=== PATIENT | female | born 1945 | race Two or more races ===

== ENCOUNTER 2017-06-26 09:15 | Day surgery (SDC) | payer OTHER ==
[~2017-06-26] VITALS: Ht 160 cm; Wt 78.0 kg
--- NOTE | ~2017-06-26 | OR ---
PATIENT'S NAME: RAINA VILLALOBOS [facility] AGE: 71 Y [address] ROOM: [place] [address] LOCATION: [facility] [place] ADMIT DATE: 06/26/2017 OR/Procedure Report DISCHARGE DATE: FAMILY PHYSICIAN: Lory Schaefer APRN ATTENDING PHYSICIAN: Javier Vale SURGEON: Javier Vale MD CROOK OPERATOR: Patricia Suarez PA-C. DATE OF PROCEDURE: 06/26/2017 PREOPERATIVE DIAGNOSIS: Cholelithiasis. POSTOPERATIVE DIAGNOSIS: Evidence of previous cholecystectomy. PROCEDURE PERFORMED: Exploratory laparoscopy. ANESTHESIA: General. ESTIMATED BLOOD LOSS: 30 mL. SPECIMEN: None. REASON FOR PROCEDURE: The patient is a 71-year-old female, who was undergoing workup for some abdominal pain. She had denied any previous cholecystectomy and had an ultrasound done that showed a contracted gallbladder with stones and some possible gallbladder wall thickening. Common duct was also on the generous side. Her liver function tests were all normal. After discussing the ultrasound findings with her through her son and the use of an spanish interpreter/translator, she elected to proceed with laparoscopic cholecystectomy. FINDINGS: The patient had considerable intraabdominal adhesions from previous surgeries which made exposure difficult. We were able to expose the gallbladder fossa and explore this area. There was no evidence of gallbladder. We did have some bleeding from the liver bed trying to expose this area completely but nothing heavy. PROCEDURE IN DETAIL: The patient was taken to the operating suite and placed in a supine position. After general endotracheal anesthesia was obtained, the abdomen was prepped with ChloraPrep and sterilely draped. Marcaine was infiltrated into the incision sites. A small infraumbilical incision was made. The fascia was elevated and a Veress needle was used to obtain a pneumoperitoneum. An 11 mm bladeless trocar was then passed across the abdominal wall. This was done with the camera through the trocar to visualize as the trocar was advanced. We then placed 3 subcostal 5 mm trocars. We initially had to spend some time taking down adhesions from the midline to expose the right upper quadrant. We then found omental adhesions up to the PATIENT'S NAME: RAIAN VILLALOBOS [facility] AGE: 71 Y [address] ROOM: [place] [address] LOCATION: [facility] [place] ADMIT DATE: 06/26/2017 OR/Procedure Report DISCHARGE DATE: FAMILY PHYSICIAN: Lory Schaefer APRN ATTENDING PHYSICIAN: Javier Vale edge of the liver. We carefully took these down with cautery. The omentum was somewhat caked and adherent into the area of the gallbladder fossa. We made sure the entire liver was well exposed to confirm our location anatomy. I continued the dissection inferiorly and could find no evidence of gallbladder. We had some thick fatty adhesions into the gallbladder fossa and we dissected through these to make sure there was not a contracted gallbladder within this. We did enter the liver bed and had a little minor bleeding. This was controlled with Surgicel. We continued the dissection inferiorly but could find no evidence of gallbladder and felt like this scarring was from previous cholecystectomy that for some reason, the patient was unaware of. We re-explored the right upper quadrant. There was no evidence of bleeding or bile leak. No other obvious injuries were identified. The trocars were all withdrawn. The pneumoperitoneum was evacuated. The fascia at the umbilicus was closed with a [id number] Vicryl suture. The other trocars were withdrawn. We did end up placing an extra 5 mm trocar, used a fan to provide some extra traction. All skin incisions were closed with subcuticular Monocryl. Benzoin, Steri-Strips, and gauze dressings were applied. POSTPROCEDURE PLAN: The patient will be sent to recovery and then to the floor. I will plan on reviewing her ultrasound with a second radiologist and discussing this with the family explaining the confusion. MD JOLIE HERMOSILLO/modl /[id number] d: 06/26/171742 t: 07/03/171938, OPERATIVE SUMMARY
[~2017-06-26 09:15] MED LIST: ASPIR 8181 MG PO; COLACE100 MG PO; GLUCOPHAGE850 M1 PO; LEVOTHROID (SY88 MCG PO; LIPITOR20 M1 PO; LISINOPRIL2.5 MG PO; NORCO 5-325 MG1 TAB PO; TYLENOL325 MG PO; ZANTAC150 MG PO; ZOLOFT100 MG PO
--- NOTE | 2017-06-26 17:47 | NUR ---
Significant Event: Pt here from PACU at 1545. Pt has 5 lap sites, right abdominal drsg has bloody drainage, the rest are dry. Pt had stridor in PACU and was given albuterol and racemic epi x 2. No stridor noted, clear lung sounds and O2 sats of 97-98% on room air. Pt is Colombian speaking.
--- NOTE | 2017-06-27 04:52 | NUR ---
Significant Event: AAOX3. REG DIET. PIV TO LFA IVF INFUSING. PAPUA [place] SPEAKING ONLY. SON IN ROOM FOR ROUTINE INTERPRETATION. VSS ON RA. 1 LG INCONTINENT VOID. 5 LAP SITES TO ABD. DRESSING CDI WITH EXCEPTION TO ONE ON RIGHT SIDE. 2 NORCO ADMINISTERED X2, LAST AT 0254. PT C/O NAUSEA (NO EMESIS), ZOFRAN ADMINISTERED AT 2156. SPD'S TO BLE. COOPERATIVE WITH CARES. Follow up:
[2017-06-27] MEDS ORDERED: NORCO 5-325 TA1 EACH PO (12:04)
--- NOTE | 2017-06-27 13:00 | NUR ---
DISCHARGE: Pt. and son were explained discharge instructions in [place]an, using the MARTII. José pina teaching and medication education on [place] given. IV removed by primary nurse. Verbalized understanding of teaching, no questions or concerns. Left with all belongings and prescriptions. Taken to front door by aide and driven home by son.
--- NOTE | 2017-06-27 15:20 | NUR ---
Significant event: Up in room and moreno ambulating with assist and gait belt and walker. [place] once for pain, had zofran for nausea and reports she had emesis and then felt better. Son at bedside.
== END 2017-06-27 13:00 | disposition disaster alternative care site (69) ==
LOC: GSDC 09:15 → GMSU 09:15 → GSDC 11:00 → GMSU 16:00 → GSDC 06-27 13:00
PROC: 0DNT4ZZ (ICD-10-PCS; principal; 2017-06-26)
DX: K66.0 Peritoneal adhesions (postprocedural) (postinfection) (principal); I10 Essential (primary) hypertension; E03.9 Hypothyroidism, unspecified; E11.9 Type 2 diabetes mellitus without complications; Z90.49 Acquired absence of other specified parts of digestive tract; Z90.710 Acquired absence of both cervix and uterus; Z79.82 Long term (current) use of aspirin; Z79.84 Long term (current) use of oral hypoglycemic drugs; Z79.899 Other long term (current) drug therapy; Z98.890 Other specified postprocedural states; Z88.1 Allergy status to other antibiotic agents
CPT/HCPCS: J0694; J2001; J2405; J7030

== ENCOUNTER 2017-07-06 11:30 | Observation (INO) | payer OTHER ==
[~2017-07-06] VITALS: Ht 162.6 cm; Wt 78.9 kg
--- NOTE | ~2017-07-06 | DS ---
PATIENT'S NAME: RAINA VILLALOBOS [facility] AGE: 71 Y [address] ROOM: [address] [address] [place] [facility] [place] [facility] [place] ADMIT DATE: 07/06/2017 Discharge Summary DISCHARGE DATE: 07/09/2017 FAMILY PHYSICIAN: Lory Schaefer APRN ATTENDING PHYSICIAN: Javier Vale DIAGNOSES: Abdominal pain with nausea and vomiting, with findings of moderate- to-severe bile-induced gastritis and mild esophagitis. SUMMARY: Raina Bautista is a 71-year-old Lithuanian-speaking female, who had recently underwent an exploratory laparoscopy. An ultrasound had shown evidence for cholelithiasis. The patient had a prior cholecystectomy. The patient had been discharged home from surgery, and was seen in followup by Dr. Vale on July 06. The patient was continuing to have abdominal pain, nausea, and vomiting, and stated that she had not been able to keep anything down. She was admitted to [facility] under the care of Dr. Vale, and a CT scan was obtained, which showed postoperative changes with no acute findings. The patient was allowed clear liquids and activity as tolerated. Hospitalist was consulted for medical management. Gastroenterology was subsequently consulted, and an EGD was performed on July 08 that did show [id number] bile-induced gastritis and mild esophagitis. Gastroenterology recommended proton pump inhibitor, Carafate, and prokinetics. Biopsy of the stomach showed reactive gastropathy. Following the EGD, diet was advanced as tolerated. On July 09, the patient was noted to have no abdominal pain, no nausea, or vomiting. Arrangements were made for the patient to discharge home. DISCHARGE INSTRUCTIONS: Included continuing with a low-fat diet. No restrictions on activity. She will follow up with Gastroenterology in 1 week. She was instructed to continue with the proton pump inhibitor, Reglan, and Carafate as prescribed until seen back in followup. DISCHARGE MEDICATIONS: Include 1. Aspirin 81 mg p.o. daily. 2. Lipitor 20 mg p.o. daily. 3. Levothroid 88 mcg p.o. daily. 4. Lisinopril 2.5 mg p.o. daily. 5. Zoloft 100 mg p.o. at bedtime. 6. Carafate suspension 1000 mg p.o. before meals and at bedtime, dispensing fourteen days' worth. 7. Tylenol 325 mg one to two every 4 hours p.r.n. pain. 8. Glucophage 850 mg p.o. daily. 9. Protonix 40 mg p.o. daily x14 days. 10. Reglan 10 mg p.o. q.a.c. and at bedtime x14 days. PATIENT'S NAME: RAINA VILLALOBOS [facility] AGE: 71 Y [address] ROOM: [place] [address] LOCATION: [facility] [place] [facility] [place] ADMIT DATE: 07/06/2017 Discharge Summary DISCHARGE DATE: 07/09/2017 FAMILY PHYSICIAN: Lory Schaefer APRN ATTENDING PHYSICIAN: Javier Vale For specifics on day-to-day care, please refer to the hospital chart. EVE PARHAM PA-C FOR MD KRISTOPHER HERMOSILLO/modl /[id number] d: 07/28/17 0533 t: 07/28/17 1126, DISCHARGE SUMMARY
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
[~2017-07-06 11:30] MED LIST changes: +NORCO 5-325 TA1 EACH PO
--- NOTE | 2017-07-06 16:28 | NUR ---
Patient is a 72 year old female who was admitted with dehydration and nausea and vomiting. Patient was admitted a few weeks ago with the same thing and a lapratomy was done to remove the gallbladder, but no gallbladder was found. Has the 5 abominal lap sites with steri-strips in place. C/D/I. Only has pain when touching, denies nausea at this time. Macedonian speaking only. Has a history of CAD, HTN, TIA, tachycardia, heartburn, diarrhea, constipation, CKD, diabetes type 2, thyroid disease. Allergies noted. Fall risk. Cooperative with admission. Iveth Power translated the admission. Language line in the room for deirdreur translations.
--- NOTE | 2017-07-06 16:52 | NUR ---
Significant Event:Is A/O.Is irish speaking only.IV in Lt.arm.Is having CT abd yet today.Getting bicarb IV.Drank barium at 1600 & 1630.Old abd stab sites look gd./healed.Pain when palpate abd.especially on Lt.side.Has had some diarrhea,N/V at home.Had lap surgery a few weeks ago.Is up with walker & standby assist.Did have very short episode of sharp Lt.upper chest pain lasting maybe 30-40 seconds then was gone.Vital signs were good.No other c/o.No SOB or lightheadedness.After CT scan ,need to run bicarb at 76ml/hr for 6hrs then back to NS at 115ml/hr. Follow up:
[2017-07-07 00:44] LABS: CPK 82 IU/L (21-215)
--- NOTE | 2017-07-07 04:07 | NUR ---
Patient is thai speaking only, language line is in the room. SBA with cane and gait belt. IV to L) forearm infusing NS at 115ml/hr. Has not had any nausea, vomiting or diarrhea this shift, no complaints of pain. Has lap sites with steri-strips from previous surgery. Dr. Vale said the CT was relatively normal. Possible discharge today.
[2017-07-07 05:49] LABS: BASOPHIL # 0.1 K/uL (0.0-0.2); BASOPHIL % 0.6 %; EOSINOPHIL # 0.4 K/uL (0.0-0.5); EOSINOPHIL % 3.4 %; HEMATOCRIT 32.3 % (33.0-46.0); HEMOGLOBIN 10.5 g/dL (10.0-15.0); IMMATURE GRANULOCYTE # 0.1 K/uL (0.0-0.3); IMMATURE GRANULOCYTE % 0.4 %; LYMPHOCYTE # 2.3 K/uL (0.8-4.0); LYMPHOCYTE % 18.8 %; MCH 29.3 pg (27.0-34.0); MCHC 32.5 gm/dL (32.0-36.5); MCV 90.2 fl (83.0-98.0); MONOCYTE # 0.7 K/uL (0.0-1.0); MONOCYTE % 5.6 %; MPV 9.1 fl (9.4-12.4); NEUTROPHIL # (ANC) 8.6 K/uL (1.8-7.8); NEUTROPHIL % 71.2 %; NRBC % 0 /100WBC (0-0.00); PLATELET COUNT 369 K/uL (150-450); RBC 3.58 M/uL (3.50-5.50); RDW-CV 14.7 % (11.9-14.6)
[2017-07-07 06:02] LABS: ALBUMIN 3.3 gm/dL (3.5-5.0); ANION GAP 11.8 (10.0-19.0); CALCIUM 8.3 mg/dL (8.5-10.5); CREATININE 1.3 mg/dL (0.5-1.1); POTASSIUM 3.8 mMol/L (3.7-5.1); TOTAL BILIRUBIN 0.5 mg/dL (0.0-1.5); TOTAL PROTEIN 7.3 g/dL (6.0-8.4)
[2017-07-07 06:04] LABS: CPK 85 IU/L (21-215)
--- NOTE | 2017-07-07 12:20 | NUR ---
Introduced self/role thru the [employer], to patient and her son. They denied any barriers to going home or at home. She was getting around independently prior and denied need for DME. Added my name to her marker board, will continue to follow. Patient/son filled out financial assistance paperwork and turned it in about 3 days ago.
--- NOTE | 2017-07-07 13:35 | NUR ---
PT SCREENED D/T (+) MST. WT LOSS NOT SIGNIFICANT FROM PREVIOUS OUTPATIENT ADMISSION. BMI IN OVERWEIGHT RANGE. BASED ON CURRENT DATA, NO NUTRITION DX IDENTIFIED. WILL ASSIST NEEDED.
--- NOTE | 2017-07-07 14:58 | NUR ---
Significant Event: Patient is alert and oriented x3. Cook Islander speaking only. Language line at the bedside as well as the counter server used. One son does speak some gambian. Was nauseated this morning and had one small emesis. Zofran given x2, last around 1120. Has denied nausea this afternoon. Abdominal pain only upon palpation. Patient complaints of a headache this afternoon, called for an order for tylenol and given 1000mg around 1430. GI consulted today. EGD in the AM. Permits need signed yet. Up with SBA and her cane. UA ordered and the next time she voids we will attempt to collect, items in the room. Has only taken in sips of clears, barely anything. L)FA IV, fluids infusing. Accuchecks AC/HS. Old lap sites x5 are C/D/I. Showered this morning. Cooperative with cares.
--- NOTE | 2017-07-08 01:55 | NUR ---
Patient is alert and oriented, hypertensive. Mongolian speaking only. SBA with cane and gait belt. Will try to get out of bed by herself. UA collected. Has not had any nausea this shift, only a headache with tylenol given. NPO since midnight for EGD, consents are signed.
[2017-07-08 01:59] LABS: BILIRUBIN URINE NEGATIVE (NEGATIVE); BLOOD URINE NEGATIVE /UL (NEGATIVE); COLOR URINE YELLOW (YELLOW); GLUCOSE URINE NEGATIVE (NEGATIVE); KETONE URINE NEGATIVE (NEGATIVE); LEUKOCYTES URINE 25 /UL (NEGATIVE); NITRITE URINE NEGATIVE (NEGATIVE); PROTEIN URINE NEGATIVE (NEGATIVE); TURBIDITY URINE CLEAR (CLEAR); UROBILINOGEN URINE NORMAL (NORMAL)
[2017-07-08 02:09] LABS: BACTERIA URINE RARE (NEGATIVE); RBC URINE NEGATIVE #/HPF (NEGATIVE); WBC URINE 0-2 #/HPF (NEGATIVE)
[2017-07-08 04:57] LABS: BASOPHIL # 0.1 K/uL (0.0-0.2); BASOPHIL % 0.7 %; EOSINOPHIL # 0.3 K/uL (0.0-0.5); EOSINOPHIL % 3.6 %; HEMATOCRIT 29.1 % (33.0-46.0); HEMOGLOBIN 9.4 g/dL (10.0-15.0); IMMATURE GRANULOCYTE % 0.5 %; LYMPHOCYTE # 1.4 K/uL (0.8-4.0); LYMPHOCYTE % 16.7 %; MCH 29.5 pg (27.0-34.0); MCHC 32.3 gm/dL (32.0-36.5); MCV 91.2 fl (83.0-98.0); MONOCYTE # 0.5 K/uL (0.0-1.0); MONOCYTE % 6.4 %; MPV 9.2 fl (9.4-12.4); NEUTROPHIL # (ANC) 6.1 K/uL (1.8-7.8); NEUTROPHIL % 72.1 %; NRBC % 0 /100WBC (0-0.00); PLATELET COUNT 311 K/uL (150-450); RBC 3.19 M/uL (3.50-5.50); RDW-CV 14.5 % (11.9-14.6); WBC 8.4 K/uL (4.0-11.0)
[2017-07-08 05:13] LABS: ANION GAP 12.8 (10.0-19.0); CALCIUM 7.8 mg/dL (8.5-10.5); CREATININE 1.2 mg/dL (0.5-1.1); POTASSIUM 3.8 mMol/L (3.7-5.1)
--- NOTE | 2017-07-08 15:49 | NUR ---
Significant Event: PT AO. ENGLISH SPEAKING ONLY. VSS ON RA, AFEBRILE. IVF RUNNING NS @ 115ML/HR TO L FA. HAD EGD THIS AM, GASTRIC BIOPSIES SENT TO CHECK FOR H PYLORI. TOLERATED CLEAR LIQUID DIET, ADVANCED TO FULL LIQUIDS FOR DINNER AND LOW FAT FOR TOMORROW AM. AC HS ACCUCHECKS, NO COVERAGE NEEDED. AMBULATES WITH SBA, CANE. DENIES PAIN, DENIES NAUSEA. PRUNE JUICE GAVE FOR CONSTIPATION, PT HAD SOME RESULTS (DID NOT LET NURSE SEE, BUT NEEDED A NEW GOWN AND PAD IN THE BED). REFUSED SHOWER THIS AM DUE TO EGD. Follow up: ADVANCE DIET, CONTINUE TO MONITOR, POSSIBLE DC TOMORROW?
--- NOTE | 2017-07-09 04:07 | NUR ---
Significant Event: Patient alert and oriented X4. Mohawk speaking only, language line at bedside. Vitals stable and on room air. 5 lap sites from previous surgery a few weeks ago. On 115ml of NS to L) forearm. Scheduled IV reglan. EGD yesterday. Full liquid for dinner. SBA with cane. Up to bathroom several times. DEnies pain and nausea. ACHS accuchecks. Possible DC today. Follow up: Monitor stomach pain
[2017-07-09 04:42] LABS: ALBUMIN 2.6 gm/dL (3.5-5.0); ANION GAP 12.1 (10.0-19.0); CALCIUM 7.4 mg/dL (8.5-10.5); CREATININE 1.1 mg/dL (0.5-1.1); POTASSIUM 4.1 mMol/L (3.7-5.1)
[2017-07-09] MEDS ORDERED: CARAFATE1 GM/10 ML PO (16:17)
[2017-07-09] MEDS ORDERED: PROTONIX40 MG PO (16:18)
[2017-07-09] MEDS ORDERED: REGLAN10 MG PO (16:20)
--- NOTE | 2017-07-09 16:55 | NUR ---
DISCHARGE INSTRUCTIONS REVIEWED WITH PT AND SON. PT REFUSED USE OF LANGUAGE LINE. SON SPEAKS KINYARWANDA AND WILL BE HELPING WITH HOME CARES. INSTRUCTIONS INCLUDED NEW MEDICATIONS, CARAFATE AND REGLAN PRIOR TO MEALS. SON VERBALIZED UNDERSTANDING. INSTRUCTED SON TO CALL TOMORROW TO MAKE F/U APPOINTEMENTS FOR [address] MOORE. SON VERBALIZED UNDERSTANDING. PT TAKEN TO FRONT LOBBY BY MICHELA IN WHEELCHAIR WITH BELONGINGS AT 1645.
== END 2017-07-09 16:45 | disposition disaster alternative care site (69) ==
LOC: EDSTATUS 11:30 → GMSU 11:34
PROVIDERS: Internal Medicine; ADMIT Surgery
PROC: 0DB68ZX Excision of Stomach, Via Natural or Artificial Opening Endoscopic, Diagnostic (ICD-10-PCS; principal; 2017-07-08)
DX: K20.9 Esophagitis, unspecified (principal); K44.9 Diaphragmatic hernia without obstruction or gangrene; K31.9 Disease of stomach and duodenum, unspecified; I10 Essential (primary) hypertension; E03.9 Hypothyroidism, unspecified; E78.00 Pure hypercholesterolemia, unspecified; E11.9 Type 2 diabetes mellitus without complications; F32.9 Major depressive disorder, single episode, unspecified; Z88.1 Allergy status to other antibiotic agents; Z86.73 Personal history of transient ischemic attack (TIA), and cerebral infarction without residual deficits; Z90.49 Acquired absence of other specified parts of digestive tract; Z90.710 Acquired absence of both cervix and uterus; Z98.51 Tubal ligation status; Z98.890 Other specified postprocedural states; Z79.84 Long term (current) use of oral hypoglycemic drugs; Z79.82 Long term (current) use of aspirin; Z79.899 Other long term (current) drug therapy
CPT/HCPCS: C9113; G0378; G0379; J2405; J2765; J7030; J7060; Q9967

== ENCOUNTER 2017-08-06 08:27 | Observation (INO) | payer SELFPAY ==
[~2017-08-06] VITALS: Ht 152.4 cm; Wt 74.6 kg
--- NOTE | ~2017-08-06 | DS ---
PATIENT'S NAME: RAINA VILLALOBOS [facility] AGE: 72 Y [address] ROOM: [address] [place], [place] [address] [place] [facility] [place]: 08/06/2017 Discharge Summary DISCHARGE DATE: 08/07/2017 FAMILY PHYSICIAN: Physician, Unknown ATTENDING PHYSICIAN: Holly Crooks FINAL DIAGNOSES: 1. Diverticulitis. 2. Acute kidney injury versus chronic kidney disease. 3. Diabetes mellitus type 2. 4. Hypothyroidism. 5. Esophagitis and gastritis. 6. Dyslipidemia. 7. Obesity. 8. Major depressive disorder. HOSPITAL COURSE: Please see details of admission H and P by Dr. Crooks. Briefly, the patient was admitted to observation with CT scan findings of sigmoid diverticulitis. She was started on Zosyn secondary to her allergy to Cipro on azithromycin. Her home medications were continued. Blood sugars were covered with sliding scale insulin during her stay. Heparin was utilized for DVT prophylaxis. The patient was feeling much better. On hospital day #2, she had three semi-soft stools without any blood. The patient's diet was advanced early in the morning and by the afternoon, she felt like she could safely be discharged home. She did start Flagyl prior to discharging and probiotics were utilized for C. diff prophylaxis. The patient was continued on her PPI as she recently had an EGD on 07/08/[address] Isaac showing gastritis and esophagitis. Biopsy positive for reactive gastropathy. The patient was seen and evaluated later in the afternoon and felt safe for discharge. The patient was agreeable with this disposition. DIAGNOSTICS: KUB of the abdomen shows no free air, nonspecific bowel pattern, no signs of obstruction. CT scan of the abdomen and pelvis shows segmental wall thickening and luminal narrowing and irregularity of the sigmoid colon, consistent with diverticulitis. Multiple colon diverticula predominant in the descending and sigmoid portions of the colon, past gallbladder resection, and vascular calcification. Blood sugars ranged from 126 to 225. Lactate on admission was 1.6, it did trend up to 1.9 and back down to 1.6. Chemistries showed sodium 137, potassium 4.8, chloride 108, bicarb 22, glucose 218, BUN 17, creatinine 1.3, mag 1.8 on the date of discharge. Amylase and lipase were within normal limits. Hemoglobin A1c was 6.4. CRP was 9.13. TSH was 0.67. Hemograms remained stable throughout her stay. Urinalysis was PATIENT'S NAME: RAINA VILLALOBOS [facility] AGE: 72 Y [address] ROOM: [address] [place], [place] [address] [place] [facility] [place]: 08/06/2017 Discharge Summary DISCHARGE DATE: 08/07/2017 FAMILY PHYSICIAN: Physician, Unknown ATTENDING PHYSICIAN: Holly Crooks within normal limits. DISCHARGE INSTRUCTIONS: The patient is discharged home. Diet and activity: As tolerated. She will follow up with Lory Schaefer APRN, in 1 week with [facility]. DISCHARGE MEDICATIONS: 1. Aspirin 81 mg daily. 2. Lipitor 20 mg daily. 3. Levothyroxine 88 mcg daily. 4. Flagyl 500 mg three times daily for 7 days. 5. Protonix 40 mg daily. 6. Florastor 250 mg twice daily for 30 days. 7. Zoloft 100 mg daily. 8. Tylenol 325 to 650 mg every 4 hours as needed. 9. Metformin 850 mg daily. 10. Zantac 150 mg daily. 11. Lisinopril 2.5 mg daily. 12. Reglan 10 mg before meals and at bedtime. 13. Colace 100 mg twice daily. 14. MiraLAX 17 g twice daily. 15. Simethicone 80 mg at bedtime. 16. Augmentin 875/125 one p.o. twice daily for 7 days. We do appreciate participating in this patient's care. Thank you very much for the ability to serve her while hospitalized at [facility]. LEVI MONTOYA FOR AVNI SHARMA MD NAKUL/modl /[id number] d: 08/08/17 0250 t: 08/08/17 1459, DISCHARGE SUMMARY
--- NOTE | ~2017-08-06 | ER ---
PATIENT'S NAME: JT CARVALHO [facility] AGE: 72 Y [address] ROOM: [place] [address] [place] [facility] [place]: 08/06/2017 ER/Outpatient Report DISCHARGE DATE: FAMILY PHYSICIAN: PHYSICIAN, UNKNOWN ATTENDING PHYSICIAN: ROBERTO KNOX Admission date and time documented in medical record. I saw the patient at 0840 hours. CHIEF COMPLAINT: Generalized abdominal pain for last three days. Pain is gradually worsened over this period of time. She had some nausea with one episode of vomiting on this past Monday. She has had two diarrhea stools over the past 24 hours. No blood in her vomitus or stool. She has had some intermittent fever with chills. She has had some dysuria and urinary frequency. Last diarrhea stool was 0200 hours this morning. She is afebrile on arrival here to the emergency room with a temperature 98.8 tympanic. She is brought in by her son who is translating for her. Again, the pain is generalized, radiates around to her back. No chest pain, shortness of breath. No fall or trauma. No headache, eyes, ears, nose, throat, neck, or spine pain. No lightheadedness, dizziness, syncope, or near syncope. No recent cough. No joint or muscle swelling, redness, or pain. No skin eruptions or rash. Does have a history of non- insulin-dependent diabetes mellitus type 2 and hypothyroidism. Has had a TIA in the past. Does have a history of depression. HOME MEDICATIONS: See attached medication list. ALLERGIES: AZITHROMYCIN, CIPRO. SOCIAL HISTORY: Nonsmoker, nondrinker. SIGNIFICANT PAST MEDICAL HISTORY: Atherosclerotic ischemic heart disease, coronary artery disease, hypertension, cardiomyopathy, jvj-vniztdq-lgbauefwk diabetes mellitus type 2, hypothyroidism, chronic kidney disease stage 3, exogenous obesity, degenerative disk disease, right wrist fracture, transient ischemic attack, depression, pancreatitis. OPERATIONS: Thyroid surgery, , tubal ligation, appendectomy, cholecystectomy, hysterectomy, cardiac catheterization, open reduction and internal fixation of right wrist fracture, ERCP. PATIENT'S NAME: JT CARVALHO [facility] AGE: 72 Y [address] ROOM: [place] [address] [place] [facility] [place]: 08/06/2017 ER/Outpatient Report DISCHARGE DATE: FAMILY PHYSICIAN: PHYSICIAN, UNKNOWN ATTENDING PHYSICIAN: ROBERTO KNOX REVIEW OF SYSTEMS: All systems reviewed by me are negative with exception of those discussed in the history of the present illness. PHYSICAL EXAMINATION: VITAL SIGNS: Temperature 98.8 tympanic, pulse 93 regular, respirations 18, blood pressure 130/67, O2 saturation on room air is 95%. HEAD: Normocephalic. EYES, EARS, NOSE, THROAT: Clear. Mucous membranes moist. NECK: No nuchal rigidity. No thyromegaly or cervical adenopathy. No tenderness. SPINE: Negative. LUNGS: Clear. Good air flow. No rales, rhonchi, or wheezes. HEART: Regular. Pulses are palpable. No chest wall or ribcage pain to palpation. ABDOMEN: It is soft, nonrigid, nondistended, tender diffusely. Decreased bowel tones. No organomegaly or abnormal mass palpable. No CVA tenderness. EXTREMITIES: Without peripheral edema, cyanosis, or deformity. Neurovascularly intact. SKIN: Clear. No skin eruptions or rash. LABORATORY DATA: White count was elevated at 14,700, 79 segs, 12 lymphs, 8 monos, 1 eo. Hemoglobin was 12.2 with hematocrit 37.4, platelet count 322,000. Pro-time is 10 with an INR 0.95. CMS was normal except for an elevated glucose 146, elevated creatinine 1.4, low GFR 38. Amylase and lipase were normal. CRP was elevated 9.13. TSH was normal. Urine showed rare whites, negative reds, rare epithelial cells, negative bacteria per high-powered field on a quick cath specimen. Procalcitonin was 0.07, lactate was 1.6. Three-way abdominal film showed no perforation, obstruction, or acute lung infiltrate. There was a questionable air-fluid level. We will review x-ray with the radiologist. I went ahead and did a CT scan of the abdomen and pelvis without contrast due to her chronic kidney disease and low GFR. CT scan was reviewed by Radiology. Radiologist said that she had a picture of a sigmoid diverticulitis. Inflammatory changes in that area. No other abnormalities. See radiology's dictated transcribed report. EMERGENCY DEPARTMENT COURSE: I did start the patient on IV normal saline, fluids. Did give her morphine IV for pain. Zofran IV for nausea, vomiting. IMPRESSION: 1. Sigmoid diverticulitis. It is in a segmental distribution with inflammatory changes with thickened bowel, sigmoid colon, bowel wall. PATIENT'S NAME: RAINA VILLALOBOS [facility] AGE: 72 Y [address] ROOM: [address] [address] [place] [facility] [place]: 08/06/2017 ER/Outpatient Report DISCHARGE DATE: FAMILY PHYSICIAN: PHYSICIAN, UNKNOWN ATTENDING PHYSICIAN: ROBERTO KNOX The patient has accompanied intermittent fever with chills, generalized abdominal pain, nausea, vomiting, diarrhea, leukocytosis, elevated CRP, and positive findings on CT scan of the abdomen and pelvis. 2. Bzn-edepuho-sghntrfug diabetes mellitus type 2. 3. Hypothyroidism. 4. Chronic kidney disease, stage 3. 5. Hypertension. 6. Atherosclerotic ischemic heart disease with coronary artery disease. PLAN: Discussed this patient with Dr. Knox, hospitalist. Dr. Knox did come to the emergency room to evaluate the patient and admit the patient the hospital for IV. Antibiotics and further evaluation and treatment as needed. I did discuss my findings and recommendations with the son and with the patient. The son interpreted my information to the patient. They both understand and agree with treatment plan. MD RILEY VAN/roxy /[id number] d: 08/06/17 1436 t: 08/07/17 0610, OUTPATIENT REPORT
--- NOTE | ~2017-08-06 | HP ---
PATIENT'S NAME: JT CARVALHO [facility] AGE: 72 Y [address] ROOM: [place] [address] LOCATION: [facility] ADMIT DATE: 08/06/2017 History & Physical DISCHARGE DATE: FAMILY PHYSICIAN: PHYSICIAN, UNKNOWN ATTENDING PHYSICIAN: ROBERTO KNOX DATE OF SERVICE: HISTORY OF PRESENT ILLNESS: This is a 72-year-old female with past medical history of CKD, depression, diabetes, hypothyroid, hypertension who was recently discharged for gastritis, mild esophagitis who has been admitted for acute lower quadrant abdominal pain bilaterally and was found to have sigmoid diverticulitis. Per patient, she has been having lower abdominal pain for a few days now. She states that this was associated with chills with nausea and vomiting. She has not eaten for days now. She otherwise denies any shortness of breath. No chest pain. No urinary changes. REVIEW OF SYSTEMS: Negative as per HPI. PAST MEDICAL HISTORY: CKD, depression, diabetes, hypothyroid, hypertension, history of again recently discharged with gastritis and esophagitis. MEDICATIONS: Include: 1. Levothyroxine 88 mcg before breakfast daily. 2. Sertraline 100 mg nightly at bedtime. 3. Metformin 850 mg every day. 4. Lipitor 20 mg daily. 5. Aspirin 81 mg daily. 6. Acetaminophen 325 q.4 h. p.r.n. as needed. Ranitidine 150 mg daily. 7. Lisinopril 2.5 mg daily. 8. Sucralfate 10 mL oral before meals and at bedtime. 9. Protonix 40 mg daily. 10. Reglan 10 mg before meals at bedtime. FAMILY HISTORY: Noncontributory. SOCIAL HISTORY: She is a nonsmoker and does not drink any alcohol. ALLERGIES: PATIENT'S NAME: JT CARVALHO [facility] AGE: 72 Y [address] ROOM: [place] [address] LOCATION: [facility] ADMIT DATE: 08/06/2017 History & Physical DISCHARGE DATE: FAMILY PHYSICIAN: PHYSICIAN, UNKNOWN ATTENDING PHYSICIAN: ROBERTO KNOX CIPRO AND AZITHROMYCIN. PHYSICAL EXAMINATION: VITAL SIGNS: She is afebrile. Pulse is 93, respiratory rate is 18, blood pressure is 138/67. GENERAL: The patient is alert, awake, in moderate distress. HEENT: Within normal limits. LUNGS: Sounds are diminished due to body habitus. Otherwise, clear. No crackles, no wheezing present. CARDIAC: Regular rate and rhythm. No rubs, no murmurs present. ABDOMEN: Diffusely tender, but more significant in the lower bilateral quadrants. Bowel sounds are slightly sluggish, but no guarding, no rigidity, no organomegaly. No pedal edema. NEUROLOGIC: Grossly intact. SKIN: Intact. PSYCHIATRIC: She appears to be able to make her own decisions. She would like to be full code. LABORATORY DATA: Significant lab work includes WBC of 14.7 with bands of 78.6. Creatinine of 1.4. CT abdomen and pelvis shows sigmoid diverticulitis. ASSESSMENT AND PLAN: This is a 72-year-old female with a past medical history of chronic kidney disease, depression, diabetes, hypothyroid, hypertension with severe esophagitis and gastritis who has been admitted for lower quadrant abdominal pain and found to have sigmoid diverticulitis and mild acute kidney injury on chronic kidney disease. PLAN: We will admit for observation. She would like to be full code. We will start her on normal saline at 100 mL an hour. We will hold metformin for now. We will start her on insulin sliding scale a.c. and at bedtime, NovoLog, mild level. We will place on n.p.o. except for medications. She is okay to take levothyroxine, sertraline, Lipitor, aspirin 81, Tylenol 650 q.6 h. p.r.n. As above, we will hold the metformin. We will start her on Zofran 4 mg q.6 h. p.r.n., fentanyl 25-50 q.3 h. p.r.n., [place] 5/325 mg 1-2 tablets q.4 h. p.r.n. Since she is allergic to Cipro and azithromycin, we will start her on Zosyn which will cover anaerobes and gram-negatives. We will obtain blood culture and lactic acid if not already obtained in the ED. ROBERTO KNOX MD PATIENT'S NAME: RAINA VILLALOBOS [facility] AGE: 72 Y [address] ROOM: [place] [address] LOCATION: [facility] ADMIT DATE: 08/06/2017 History & Physical DISCHARGE DATE: FAMILY PHYSICIAN: PHYSICIAN, UNKNOWN ATTENDING PHYSICIAN: ROBERTO KNOX /[id number] D: [id number] T: 819 HISTORY & PHYSICAL
[~2017-08-06 08:27] MED LIST changes: +CARAFATE1 GM/10 ML PO; -NORCO 5-325 TA1 EACH PO; +PROTONIX40 MG PO; +REGLAN10 MG PO
[2017-08-06 09:05] LABS: BILIRUBIN URINE NEGATIVE (NEGATIVE); BLOOD URINE NEGATIVE /UL (NEGATIVE); COLOR URINE YELLOW (YELLOW); GLUCOSE URINE NEGATIVE (NEGATIVE); KETONE URINE NEGATIVE (NEGATIVE); LEUKOCYTES URINE NEGATIVE /UL (NEGATIVE); NITRITE URINE NEGATIVE (NEGATIVE); PROTEIN URINE 15 mg/dL (NEGATIVE); SPEC GRAVITY URINE 1.015 (1.003-1.035); TURBIDITY URINE CLEAR (CLEAR); UROBILINOGEN URINE NORMAL (NORMAL)
[2017-08-06 09:12] LABS: BACTERIA URINE NEGATIVE (NEGATIVE); EPITHELIAL URINE RARE #/HPF (NEGATIVE); RBC URINE NEGATIVE #/HPF (NEGATIVE); WBC URINE RARE #/HPF (NEGATIVE)
[2017-08-06 09:37] LABS: BASOPHIL # 0.1 K/uL (0.0-0.2); BASOPHIL % 0.4 %; EOSINOPHIL # 0.1 K/uL (0.0-0.5); EOSINOPHIL % 0.9 %; HEMATOCRIT 37.4 % (33.0-46.0); HEMOGLOBIN 12.2 g/dL (10.0-15.0); IMMATURE GRANULOCYTE # 0.1 K/uL (0.0-0.3); IMMATURE GRANULOCYTE % 0.5 %; LYMPHOCYTE # 1.8 K/uL (0.8-4.0); LYMPHOCYTE % 12.1 %; MCHC 32.6 gm/dL (32.0-36.5); MCV 91.9 fl (83.0-98.0); MONOCYTE # 1.1 K/uL (0.0-1.0); MONOCYTE % 7.5 %; MPV 9.7 fl (9.4-12.4); NEUTROPHIL # (ANC) 11.5 K/uL (1.8-7.8); NEUTROPHIL % 78.6 %; NRBC % 0 /100WBC (0-0.00); PLATELET COUNT 322 K/uL (150-450); RBC 4.07 M/uL (3.50-5.50); RDW-CV 14.2 % (11.9-14.6); WBC 14.7 K/uL (4.0-11.0)
[2017-08-06 09:43] LABS: INR - (THERAPEUTIC) 0.95 (0.92-1.07)
[2017-08-06 09:56] LABS: ALBUMIN 3.5 gm/dL (3.5-5.0); ANION GAP 13.7 (10.0-19.0); CREATININE 1.4 mg/dL (0.5-1.1); POTASSIUM 4.7 mMol/L (3.7-5.1); TOTAL BILIRUBIN 0.4 mg/dL (0.0-1.5); TOTAL PROTEIN 7.6 g/dL (6.0-8.4)
[2017-08-06] MEDS ORDERED: COLACE100 MG PO (12:25)
[2017-08-06] MEDS ORDERED: MIRALAX17 GM PO (12:26)
[2017-08-06] MEDS ORDERED: MYLICON OR GAS-80 MG PO (12:30)
--- NOTE | 2017-08-06 15:31 | NUR ---
History of diverticulitis, diabetes type 2 medication controlled, TIA, CAD, Cardiomyopathy, hypothyroid, CKD, obesity, degenertive disc disease, R)wrist Fx, depression, pancreatitis, appendectomy, hysterectomy, thyroid Sx. Son reports mom has "bad" knees so uses quad cane. Diarrhea x4 days. Non smoker, non drinker. Czech speaking only, accompanied by son who is Occitan speaking.
--- NOTE | 2017-08-06 16:07 | NUR ---
AAOx3. Cooperative w/cares. Italian speaking only. BS AC/HS w/SSI; none given. IVF to LFA w/intermittent Abx. R) arm limb alert per pt/family from previous traumatic injury and Sx. Up w/SBA, GB, and pesonal quad cane for chronic bilat knee pains. Diarrhea since , but continued to take Miralax, stool softeners, Metformin, Reglan as prescribed. Gave initial dose Zosyn IV and 2tabs [place]. NPO except sips w/meds. Son at BS and translates.
--- NOTE | 2017-08-07 04:40 | NUR ---
Significant Event: Sleeping for long periods tonight. VSS. Remains NPO with exception of sips with meds. Bowel sounds active x4 quandrant. No stools this shift. Tylenol given x1 at 2153 for complaints of headache. Up with SBA and walker. PIV patent and infusing without complications. Son in room throughout the night. Follow up:
[2017-08-07 11:26] LABS: BASOPHIL % 0.3 %; EOSINOPHIL # 0.1 K/uL (0.0-0.5); EOSINOPHIL % 0.6 %; HEMATOCRIT 32.1 % (33.0-46.0); HEMOGLOBIN 10.3 g/dL (10.0-15.0); IMMATURE GRANULOCYTE # 0.1 K/uL (0.0-0.3); IMMATURE GRANULOCYTE % 0.5 %; LYMPHOCYTE # 1.1 K/uL (0.8-4.0); LYMPHOCYTE % 9.5 %; MCH 29.9 pg (27.0-34.0); MCHC 32.1 gm/dL (32.0-36.5); MCV 93.3 fl (83.0-98.0); MONOCYTE # 0.6 K/uL (0.0-1.0); MONOCYTE % 4.8 %; MPV 9.5 fl (9.4-12.4); NEUTROPHIL # (ANC) 9.7 K/uL (1.8-7.8); NEUTROPHIL % 84.3 %; NRBC % 0 /100WBC (0-0.00); PLATELET COUNT 286 K/uL (150-450); RBC 3.44 M/uL (3.50-5.50); RDW-CV 13.9 % (11.9-14.6); WBC 11.6 K/uL (4.0-11.0)
[2017-08-07 11:40] LABS: ANION GAP 11.8 (10.0-19.0); CALCIUM 8.4 mg/dL (8.5-10.5); CREATININE 1.3 mg/dL (0.5-1.1); MAGNESIUM 1.8 mg/dL (1.8-2.6); PHOSPHORUS 3.3 mg/dL (2.5-4.9); POTASSIUM 4.8 mMol/L (3.7-5.1)
[2017-08-07] MEDS ORDERED: AUGMENTIN 875-1 EACH PO (17:19)
[2017-08-07] MEDS ORDERED: FLAGYL500 MG PO (17:24)
[2017-08-07] MEDS ORDERED: FLORASTOR250 MG PO (17:24)
[2017-08-07] MEDS ORDERED: NORCO 5-325 TA1 EACH PO (17:31)
--- NOTE | 2017-08-07 17:50 | NUR ---
Orders received for the patient to be discharged today. Dismissal instructions were prepared by the virtual nurse and reviewed at bedside with the primary nurse AWA Rubin. Caryn reviewed the following including [employer] teaching sheets provided in bulgarian and angolan. discharge instructions for diverticultits, undestanding diverticulosis, flagyl.
--- NOTE | 2017-08-07 19:42 | NUR ---
Significant Event: PT WAS DISMISSED TO HOME WITH HER SON. PT HAD 1 SM, SOFT, FORMED BROWN STOOL. SHE DENIED ABDOMINAL PAIN BUT DID C/O A HEADACHE. SHE WAS GIVEN NORCO X 1. PT REPORTED RELIEF AND DENIED HEACHACHE THE REST OF THE DAY. SHE HAD CLEAR LIQ DIET WITHOUT PROBLEMS. DISMISSAL INSTRUCTIONS GIVEN TO PT AND SON TO INTERPRET FOR HER. KRAERNESTINA GIVEN IN CROATIAN AND SERBIAN.
== END 2017-08-07 18:05 | disposition disaster alternative care site (69) ==
LOC: GMED 08:27 → GMSU 11:10
PROVIDERS: Emergency Medicine; ADMIT Hospitalist
DX: K57.32 Diverticulitis of large intestine without perforation or abscess without bleeding (principal); E11.22 Type 2 diabetes mellitus with diabetic chronic kidney disease; I12.9 Hypertensive chronic kidney disease with stage 1 through stage 4 chronic kidney disease, or unspecified chronic kidney disease; N18.9 Chronic kidney disease, unspecified; F32.9 Major depressive disorder, single episode, unspecified; E03.9 Hypothyroidism, unspecified; K29.70 Gastritis, unspecified, without bleeding; K20.9 Esophagitis, unspecified; Z88.1 Allergy status to other antibiotic agents
CPT/HCPCS: C9113; J1644; J2270; J2405; J2543; J7030; J7050